=== PATIENT | female | born 1955 | race Caucasian/White ===

== ENCOUNTER 2020-01-12 12:46 | Outpatient (CLI) | payer MEDICARE, SELFPAY | END 2020-01-12 12:47 | disposition home or self-care (01) | LOC: ANHAUDIO 12:52 | PROVIDERS: PCP Family Medicine; Visit Provider Family Medicine | DX: H91.90 Unspecified hearing loss, unspecified ear (principal) | CPT/HCPCS: 92557; 92567 ==

== ENCOUNTER 2020-01-19 14:19 | Outpatient (RCR) | payer MEDICARE, SELFPAY | END 2020-01-19 23:59 | disposition home or self-care (01) | LOC: ANHAUDIO 14:19 | PROVIDERS: PCP Family Medicine | DX: Z46.1 Encounter for fitting and adjustment of hearing aid (principal) | CPT/HCPCS: 99199 ==